=== PATIENT | male | born 1945 ===

== ENCOUNTER 2017-09-01 17:38 | Emergency (ER) | payer OTHER ==
[2017-09-01 17:53] VITALS: BMI 29.5
[2017-09-01] MEDS ORDERED: Sodium Chloride 0.9% 1,000 ML IV STA (17:58)
--- NOTE | 2017-09-01 18:03 | ED PDOC ---
Arrival/HPI - General Time Seen by Provider: 09/01/17 17:40 - History of Present Illness Narrative History of Present Illness (Text): 72 y/o M c PMHx HTN, heart condition p/w cough x 3 days. States cough is associated with fever, shortness of breath, and mild chest pain of 2 days. Denies sputum production, nausea, vomiting, diarrhea, constipation, abdominal pain. He reports dysuria and frequent urination for years. Has been on antibiotics Cipro and Flagyl by his PMD but was instructed to come to the ED if he continues to have symptoms. Family/Social History Family/Social History: No Known Family HX Allergies/Home Meds Allergies/Adverse Reactions: Allergies No Known Allergies Allergy (Verified 09/01/17 17:57) Home Medications: Home Meds Medication Instructions Recorded Confirmed Ciprofloxacin [Cipro] 500 mg PO BID 09/01/17 09/01/17 Lisinopril [Zestril] 5 mg PO DAILY 09/01/17 09/01/17 amLODIPine [Norvasc] 10 mg PO DAILY 09/01/17 09/01/17 metroNIDAZOLE [Flagyl] 500 mg PO BID 09/01/17 09/01/17 Review of Systems - Physician Review All systems were reviewed & negative as marked: Yes - Review of Systems Gastrointestinal: absent: Abdominal Pain Skin: absent: Rash Physical Exam - Physical Exam Narrative Physical Exam (Text): Gen: NAD Head: NC/AT Eyes: PERRL ENT: No pharyngeal erythema or exudates Neck: No rigidity Chest: No tenderness CV: Tachycardic Lungs: Mild expiratory wheezing diffusely Abd: Soft, NT Back: No CVA tenderness Skin: No rash Neuro: Alert, no focal deficit Extremities: No edema Vital Signs Temp Pulse Resp BP Pulse Ox 09/01/17 21:04 99.3 F 09/01/17 20:37 101 H 17 105/66 95 09/01/17 17:52 101.3 F H 123 H 18 124/80 97 Medical Decision Making ED Course and Treatment: EKG Sinus rhythm, 124 bpm, no ST/T wave changes 09/01/17 21:13 FINDINGS: LUNGS: No active pulmonary disease. PLEURA: No significant pleural effusion identified. No pneumothorax apparent. CARDIOVASCULAR: Atherosclerotic aortic calcifications. Cardiomediastinal silhouette within normal limits. OSSEOUS STRUCTURES: Degenerative changes. VISUALIZED UPPER ABDOMEN: Normal. OTHER FINDINGS: None. IMPRESSION: No active disease. HR and Fever normalized. Patient states he feels well. Will discharge, like viral illness, instructed to f/u with PMD in 2 days, instructed to return to ED immediately for worsening pain, fever, dyspnea, or any other problem. - Lab Interpretations Lab Results: 09/01/17 18:02 09/01/17 18:02 Lab Results 09/01/17 20:09: Urine Color Yellow, Urine Appearance Sl cloudy, Urine pH 6.0, Ur Specific [place] 1.020, Urine Protein Trace H, Urine Glucose (UA) Negative, Urine Ketones Negative, Urine Blood Trace-intact H, Urine Nitrate Negative, Urine Bilirubin Negative, Urine Urobilinogen 1.0 H, Ur Leukocyte Esterase Trace H, Urine RBC 0 - 2, Urine WBC 0 - 2 09/01/17 18:02: Sodium 138, Chloride 104, Potassium 4.0, Carbon Dioxide 22, Anion Gap 17, BUN 14, Creatinine 0.9, Est GFR ( Amer) > 60, Est GFR (Non- Af Amer) > 60, Random Glucose 175 H, Calcium 8.9, Total Bilirubin 0.7, AST 26, ALT 25, Alkaline Phosphatase 68, Total Creatine Kinase 53, Troponin I < 0.01, NT -Pro-B Natriuret Pep 150, Total Protein 6.9, Albumin 3.9, Globulin 3.0, Albumin/ Globulin Ratio 1.3 09/01/17 18:02: pO2 71 H, VBG pH 7.41, VBG pCO2 36.0 L, VBG HCO3 22.8, VBG Total CO2 23.9, VBG O2 Sat (Calc) 97.8 H, VBG Base Excess -1.4 L, VBG Potassium 3.8, Sodium 134.0, Chloride 106.0, Glucose 186 H, Lactate 1.4, FiO2 21.0, Venous Blood Potassium 3.8 09/01/17 18:02: PT 16.1 H, INR 1.40 H, APTT 31.2 09/01/17 18:02: WBC 15.8 H, RBC 4.05, Hgb 12.8 L, Hct 36.7 L, MCV 90.6, MCH 31.6 , MCHC 34.9, RDW 13.7, Plt Count 126, MPV 11.2 H, Gran % 78.7 H, Lymph % (Auto) 13.5 L, [place] % (Auto) 7.5 H, Eos % (Auto) 0.2 L, Baso % (Auto) 0.1, Gran # 12.44 H, Lymph # (Auto) 2.1, [place] # (Auto) 1.2 H, Eos # (Auto) 0.0, Baso # (Auto ) 0.02 - RAD Interpretation Radiology Orders: 09/01/17 17:58 CHEST TWO VIEWS (PA/LAT) [RAD] Stat - Medication Orders Current Medication Orders: Discontinued Medications Acetaminophen (Tylenol 325mg Tab) 650 mg PO STAT STA Stop: 09/01/17 17:59 Last Admin: 09/01/17 19:30 Dose: 650 mg Sodium Chloride (Sodium Chloride 0.9%) 1,000 mls @ 999 mls/hr IV .Q1H1M STA Stop: 09/01/17 18:58 Last Admin: 09/01/17 19:31 Dose: 999 mls/hr eMAR Start Stop Document 09/01/17 19:31 IT (Rec: 09/01/17 19:31 IT [facility] [place]-[id number]) Intravenous Solution Start Date 09/01/17 Start Time 19:31 Disposition/Present on Arrival - Present on Arrival Any Indicators Present on Arrival: No - Disposition Have Diagnosis and Disposition been Completed?: Yes Diagnosis: Fever Disposition: HOME/ ROUTINE Disposition Time: 21:14 Patient Plan: Discharge Condition: STABLE Discharge Instructions (ExitCare): Viral Upper Respiratory Infection, Adult (DC ) Prescriptions: Ibuprofen [Motrin] 600 mg PO Q6 #25 tab
[2017-09-01 18:15] LABS: VENOUS BLOOD GAS BASE EXCESS -1.4 mmol/L (0.0-2.0); VENOUS BLOOD GAS PO2 71 mm/Hg (30-55); VENOUS BLOOD PH 7.41 (7.32-7.43)
[2017-09-01 18:27] LABS: ALB/GLOB RATIO 1.3 (1.1-1.8); ALBUMIN 3.9 g/dL (3.0-4.8); ALT/SGPT 25 U/L (7-56); AST/SGOT 26 U/L (17-59); BLOOD UREA NITROGEN 14 mg/dL (7-21); CALCIUM 8.9 mg/dL (8.4-10.5); GFR AFRICAN-AMERICAN > 60; GFR NON-AFRICAN AMERICAN > 60
[2017-09-01 18:28] LABS: BASO # 0.02 K/mm3 (0.0-2.0); BASO % 0.1 % (0.0-3.0); EOS % 0.2 % (1.5-5.0); GRAN # 12.44 (1.4-6.5); GRAN % 78.7 % (50.0-68.0); HEMOGLOBIN 12.8 g/dL (14.0-18.0); LYMPH # 2.1 (1.2-3.4); LYMPH % 13.5 % (22.0-35.0); MEAN CELL VOLUME 90.6 fl (80.0-105.0); MEAN CORPUSCULAR HEMOGLOBIN 31.6 pg (25.0-35.0); MEAN CORPUSCULAR HGB CONC 34.9 g/dl (31.0-37.0); MEAN PLATELET VOLUME 11.2 fl (7.0-11.0); MONO # 1.2 (0.1-0.6); MONO % 7.5 % (1.0-6.0); RBC 4.05 10^6/uL (3.5-6.1); RED CELL DISTRIBUTION WIDTH 13.7 % (11.5-14.5); WHITE BLOOD COUNT 15.8 10^3/ul (4.5-11.0)
[2017-09-01 18:33] LABS: INR 1.4 (0.93-1.08); PARTIAL THROMBOPLASTIN TIME 31.2 Seconds (25.1-36.5); PROTHROMBIN TIME 16.1 SECONDS (9.4-12.5)
[2017-09-01 18:38] LABS: B-TYPE NATRIURETIC PEPTIDE 150 pg/mL (0-450); TROPONIN I < 0.01 ng/mL
--- NOTE | 2017-09-01 18:50 | RAD ---
HISTORY: cough, fever, tachycardia COMPARISON: No prior. TECHNIQUE: Chest PA and lateral FINDINGS: LUNGS: No active pulmonary disease. PLEURA: No significant pleural effusion identified. No pneumothorax apparent. CARDIOVASCULAR: Atherosclerotic aortic calcifications. Cardiomediastinal silhouette within normal limits. OSSEOUS STRUCTURES: Degenerative changes. VISUALIZED UPPER ABDOMEN: Normal. OTHER FINDINGS: None. IMPRESSION: No active disease.
[2017-09-01 20:31] LABS: URINE BILIRUBIN NEGATIVE (NEGATIVE); URINE BLOOD TRACE-INTACT (NEGATIVE); URINE GLUCOSE (UA) NEGATIVE (NEGATIVE); URINE LEUKOCYTE ESTERASE TRACE Leu/uL (NEGATIVE); URINE PROTEIN TRACE mg/dL (<30 mg/dL)
[2017-09-01 20:32] LABS: URINE APPEARANCE SL CLOUDY (CLEAR); URINE COLOR YELLOW (YELLOW)
[2017-09-01 20:37] VITALS: RESP 17; O2SAT 95
[2017-09-01 20:38] LABS: URINE RBC 0 - 2 /hpf (0-2); URINE WBC 0 - 2 /hpf (0-6)
[2017-09-01 21:23] VITALS: BP 107/68; PULSE 94; TEMP 99.2
--- NOTE | 2017-09-02 09:11 | CARD ---
APPROVED REPORT EKG Measurement Heart [id number] <Conclusion> Sinus tachycardia RVCD Otherwise normal ECG
== END 2017-09-01 21:23 | disposition home or self-care (01) ==
LOC: ED 17:38
DX: R50.9 Fever, unspecified (principal); I10 Essential (primary) hypertension
CPT/HCPCS: 71046; 80053; 81001; 82550; 82803; 83880; 84484; 85025; 85610; 85730; 87040; 87086; 93005; 99284; J7030

== ENCOUNTER 2017-11-24 14:38 | Emergency (ER) | payer OTHER ==
--- NOTE | 2017-11-24 14:53 | ED PDOC ---
Arrival/HPI - General Historian: Patient, Project Portfolio Analyst - History of Present Illness Narrative History of Present Illness (Text): 11/25/17 01:53 72 y/o male with PMH of HTN who presents to the ED c/o cough x 3 days. History obtained with help from video fiber optics engineer. Pt says cough is non-productive. Pt has associated back pain only when coughing in addition to generalized myalgias. He has not taken any medication for his symptoms. Denies fever, chills, nausea, vomiting, diarrhea, SOB, chest pain, palpitations, headache, syncope, urinary symptoms, bowel or bladder incontinence, saddle anesthesia, rash. <Bonnie Mendoza - Last Filed: 11/25/17 01:32> <Ilir Simpson - Last Filed: 11/28/17 13:41> - General Time Seen by Provider: 11/24/17 14:41 Past Medical History - Provider Review Nursing Documentation Reviewed: Yes - Infectious Disease Hx of Infectious Diseases: None - Cardiac Hx Hypertension: Yes Other/Comment: heart problem? - Pulmonary Hx Respiratory Disorders: No - HEENT Hx HEENT Disorder: No - Renal Hx Renal Disorder: No - Musculoskeletal/Rheumatological Hx Musculoskeletal Disorders: No - Psychiatric Hx Substance Use: No - Anesthesia Hx Anesthesia Reactions: No <Bonnie Mendoza - Last Filed: 11/25/17 01:32> Family/Social History - Physician Review Nursing Documentation Reviewed: Yes Family/Social History: No Known Family HX Smoking Status: Unknown If Ever Smoked Hx Alcohol Use: No Hx Substance Use: No <Bonnie Mendoza - Last Filed: 11/25/17 01:32> Allergies/Home Meds <Bonnie Mendoza - Last Filed: 11/25/17 01:32> <Ilir Simpson - Last Filed: 11/28/17 13:41> Allergies/Adverse Reactions: Allergies No Known Allergies Allergy (Verified 11/24/17 15:00) Home Medications: Home Meds Medication Instructions Recorded Confirmed Ciprofloxacin [Cipro] 500 mg PO BID 09/01/17 09/01/17 Lisinopril [Zestril] 5 mg PO DAILY 09/01/17 09/01/17 amLODIPine [Norvasc] 10 mg PO DAILY 09/01/17 09/01/17 metroNIDAZOLE [Flagyl] 500 mg PO BID 09/01/17 09/01/17 Review of Systems - Review of Systems Constitutional: Normal. absent: Fevers Eyes: Normal. absent: Vision Changes ENT: Normal. absent: Sore Throat, Rhinorrhea Respiratory: Cough. absent: SOB, Sputum Cardiovascular: absent: Chest Pain, Palpitations, Syncope Gastrointestinal: absent: Abdominal Pain, Stool Changes, Constipation, Diarrhea, Nausea, Vomiting, Appetite Changes, Hematochezia, Hematemesis Genitourinary Male: Normal. absent: Dysuria, Frequency Musculoskeletal: Myalgias (lower back). absent: Neck Pain, Joint Swelling Skin: Normal. absent: Rash Neurological: Normal. absent: Headache, Dizziness Endocrine: absent: Diaphoresis Hemo/Lymphatic: Normal. absent: Adenopathy <Bonnie Mendoza - Last Filed: 11/25/17 01:32> Physical Exam Vital Signs Reviewed: Yes Temperature: Afebrile Blood Pressure: Normal Pulse: Regular Respiratory Rate: Normal Appearance: Positive for: Well-Appearing, Non-Toxic, Comfortable Pain Distress: None Mental Status: Positive for: Alert and Oriented X 3 - Systems Exam Head: Present: Atraumatic, Normocephalic Pupils: Present: PERRL Extroacular Muscles: Present: EOMI Conjunctiva: Present: Normal Mouth: Present: Moist Mucous Membranes Nose (Internal): Present: Normal Inspection Neck: Present: Normal Range of Motion. No: Meningeal Signs, MIDLINE TENDERNESS, Paraspinal Tenderness Respiratory/Chest: Present: Good Air Exchange, Wheezes (expiratory, bilaterally), Rhonchi (left side). No: Respiratory Distress, Accessory Muscle Use, Retracting, Tachypneic Cardiovascular: Present: Regular Rate and Rhythm, Normal S1, S2. No: Murmurs Abdomen: Present: Normal Bowel Sounds. No: Tenderness, Distention, Peritoneal Signs Back: Present: Normal Inspection. No: Midline Tenderness, Paraspinal Tenderness Upper Extremity: Present: Normal Inspection, Normal ROM, NORMAL PULSES. No: Cyanosis, Edema Lower Extremity: Present: Normal Inspection, NORMAL PULSES, Normal ROM Neurological: Present: GCS=15, CN II-XII Intact, Speech Normal, Motor Func Grossly Intact, Normal Sensory Function, Gait Normal Skin: Present: Warm, Dry, Normal Color. No: Rashes Lymphatic: No: Cervical Adenopathy Psychiatric: Present: Alert, Oriented x 3, Normal Insight, Normal Concentration <Bonnie Mendoza - Last Filed: 11/25/17 01:32> Vital Signs Temp Pulse Resp BP Pulse Ox 11/24/17 17:10 90 20 120/64 97 11/24/17 15:00 98.1 F 90 18 125/74 99 <Ilir Simpson - Last Filed: 11/28/17 13:41> Medical Decision Making ED Course and Treatment: 11/24/17 14:50 72 y/o male with PMH of HTN who presents to the ED c/o cough x 3 days. History obtained with help from video fiber optics engineer. Pt says cough is non-productive. Pt has associated back pain only when coughing in addition to generalized myalgias. He has not taken any medication for his symptoms. Denies fever, chills, nausea, vomiting, diarrhea, SOB, chest pain, palpitations, headache, syncope, urinary symptoms, bowel or bladder incontinence, saddle anesthesia, rash. Physical exam: Normal cardiac, abdominal, and back exams. Lungs with left sided intermittent rhonchi and bilateral intermittent wheezing. Will give duoneb x 3 Will get CXR 11/24/17 16:44 CXR: FINDINGS: Examination limited by habitus. LUNGS: Mild left basilar atelectasis/infiltrate. Please note that chest x-ray has limited sensitivity for the detection of pulmonary masses. PLEURA: No significant pleural effusion identified. No definite pneumothorax . CARDIOVASCULAR: Heart size appears within normal limits. Ectatic aorta. Atherosclerotic calcifications of the aorta. OSSEOUS STRUCTURES: Degenerative changes of the spine. VISUALIZED UPPER ABDOMEN: Unremarkable. OTHER FINDINGS: None. IMPRESSION: Left basilar atelectasis/infiltrate. Pt reassessed after duoneb, wheezing has decreased bliaterally. Will prescribe Azithromycin, tessalon perles, ibuprofen 600mg 11/24/17 16:49 Impression: Pneumonia Plan: Take Zpak as prescribed Take tessalon perles three times daily as needed for cough Take ibuprofen every 6 hours as needed for pain increase fluids followup with clinic within 2 days return to ED if symptoms persist or worsen Plan discussed with pt, who agrees and understands. Pt comfortable with discharge home <Bonnie Mendoza - Last Filed: 11/25/17 01:32> - RAD Interpretation Radiology Orders: 11/24/17 15:43 CXR [CHEST TWO VIEWS (PA/LAT)] [RAD] Stat - Medication Orders Current Medication Orders: Discontinued Medications Albuterol/Ipratropium (Duoneb 3 Mg/0.5 Mg (3 Ml) Ud) 3 ml IH Q15M RAMIRO Stop: 11/24/17 16:16 Last Admin: 11/24/17 16:43 Dose: 3 ml <Ilir Simpson - Last Filed: 11/28/17 13:41> - PA / [employer] / Resident Statement / has reviewed & agrees with the documentation as recorded. <Ilir Simpson - Last Filed: 11/28/17 13:41> Disposition/Present on Arrival - Present on Arrival Any Indicators Present on Arrival: No History of DVT/PE: No History of Uncontrolled Diabetes: No Urinary Catheter: No History Surgical Site Infection Following: None - Disposition Have Diagnosis and Disposition been Completed?: Yes Disposition Time: 16:45 Patient Plan: Discharge <Bonnie Mendoza - Last Filed: 11/25/17 01:32> <Ilir Simpson - Last Filed: 11/28/17 13:41> - Disposition Diagnosis: Pneumonia Disposition: HOME/ ROUTINE Condition: IMPROVED Discharge Instructions (ExitCare): Pneumonia in Adults Additional Instructions: [place] antibiticos segn lo prescrito jayy 5 valiente Use inhaladores de albuterol 2 inhalaciones cada 6 horas segn sea necesario para la tos Aumente los lquidos Seguimiento con el mdico primario dentro de 2 valiente Regrese a la saqib de urgencias si los sntomas persisten o empeoran Prescriptions: RX: Albuterol HFA [Ventolin HFA 90 mcg/actuation (8 g)] 2 puff IH Q6H PRN #60 puff PRN Reason: asthma Azithromycin [Z-Raul] 250 mg PO DAILY #6 tab Benzonatate [Tessalon Perle] 100 mg PO TID #21 capsule RX: Ibuprofen [Motrin Tab] 600 mg PO Q6H PRN #30 tab PRN Reason: Pain, Mild (1-3) Referrals: Keshia Santa MD [Medical Doctor] - Follow up with primary [facility] [Outside] - Follow up with primary Forms: WORK NOTE, ki work (Belizean)
[2017-11-24 15:01] VITALS: PULSE 90; TEMP 98.1; BMI 28.1
[2017-11-24] MEDS: Albuterol-Ipratrop 3 mg / 0.5 (3 ml) UD IH SCH ×3 (16:10→16:43)
--- NOTE | 2017-11-24 16:41 | RAD ---
HISTORY: productive cough COMPARISON: Chest x-ray performed 09/01/17 TECHNIQUE: Chest PA and lateral FINDINGS: Examination limited by habitus. LUNGS: Mild left basilar atelectasis/infiltrate. Please note that chest x-ray has limited sensitivity for the detection of pulmonary masses. PLEURA: No significant pleural effusion identified. No definite pneumothorax . CARDIOVASCULAR: Heart size appears within normal limits. Ectatic aorta. Atherosclerotic calcifications of the aorta. OSSEOUS STRUCTURES: Degenerative changes of the spine. VISUALIZED UPPER ABDOMEN: Unremarkable. OTHER FINDINGS: None. IMPRESSION: Left basilar atelectasis/infiltrate.
[2017-11-24 17:45] VITALS: BP 120/64; RESP 20; O2SAT 97
--- NOTE | 2017-11-25 10:00 | CARD ---
APPROVED REPORT Date of service: 11/24/2017 EKG Measurement Heart [id number] <Conclusion> Normal sinus rhythm RVCD Q in lll No change except the rate is slower
== END 2017-11-24 17:10 | disposition home or self-care (01) ==
LOC: ED 14:38
DX: J18.9 Pneumonia, unspecified organism (principal); I10 Essential (primary) hypertension